=== PATIENT | female | born 1935 | race Caucasian/White ===

== ENCOUNTER 2022-06-28 16:27 | Emergency (ER) | payer MEDICARE, MEDICAID ==
[~2022-06-28] VITALS: Ht 149.9 cm; Wt 68.0 kg
--- NOTE | 2022-06-28 16:39 | NUR ---
[facility] TO ER BED 9
--- NOTE | 2022-06-28 16:50 | NUR ---
FAITH ACEVEDO [phone]
[2022-06-28] MEDS ORDERED: ONDANSETRON 4 MG/2 ML VIAL IVP ONE (17:00)
[2022-06-28] MEDS ORDERED: ONDANSETRON 4 MG/2 ML VIAL ONE (17:01)
--- NOTE | 2022-06-28 17:07 | NUR ---
Patient discharged with v/s stable. Written and verbal after care instructions ABOUT FALL PREVENTION, HEAD IJURY, AND SYNCOPE given and explained. Patient verbalized understanding. [facility]ulance [facility] with to jail. All questions addressed prior to discharge. Advised to follow up with PMD.
[2022-06-28 17:10] VITALS: BP 109/76
--- NOTE | 2022-06-28 17:13 | NUR ---
PATIENT PRESENTS TO ED WITH ABDOMINAL PAIN, NAUSEA/VOMITING, HYPOTENSION . PATIENT HAD 3 EPISODES OF VOMITING IN THE FIELD; SKIN IS PINK/WARM/DRY; AAOX4 WITH UNSTEADY GAIT; LUNGS CLEAR BL; HR EVEN AND REGULAR; PT DENIES ANY FEVER, CP, SOB, OR COUGH AT THIS TIME; PATIENT STATES PAIN OF 10/10 AT THIS TIME; VSS; PATIENT POSITIONED FOR COMFORT; HOB ELEVATED; BEDRAILS UP X2; BED DOWN. ER MD MADE AWARE OF PT STATUS.
[2022-06-28 17:18] LABS: BASOPHILS % (AUTO) 0.4 % (0.0-2.0); EOSINOPHILS # (AUTO) 0.2 K/uL (0-0.4); EOSINOPHILS % (AUTO) 2.3 % (0.0-4.0); HEMATOCRIT 43.7 % (36-48); HEMOGLOBIN 14.5 g/dL (12.0-16.0); LYMPHOCYTES # (AUTO) 3.6 K/uL (2.5-16.5); LYMPHOCYTES % (AUTO) 53.4 % (20.5-51.1); MEAN CORPUSCULAR HEMOGLOBIN 29 pg (27-31); MEAN CORPUSCULAR HGB CONC 33 g/dL (33-37); MONOCYTES # (AUTO) 0.2 K/uL (0.8-1.0); MONOCYTES % (AUTO) 3.7 % (1.7-9.3); NEUTROPHILS # (AUTO) 2.7 K/uL (1.8-7.7); NEUTROPHILS % (AUTO) 40.2 % (42.2-75.2); PLATELET COUNT (AUTO) 261 K/uL (140-450); RED BLOOD CELL COUNT(AUTO) 4.97 MIL/uL (4.20-5.40); RED CELL DISTRIBUTION WIDTH 14.3 % (11.6-13.7); WHITE BLOOD COUNT (AUTO) 6.7 K/uL (4.8-10.8)
[2022-06-28 17:43] LABS: ANION GAP 16.3 (8-16); CHLORIDE 106 mmol/L (98-107); CREATININE 0.9 mg/dL (0.6-1.3); GLUCOSE 113 mg/dL (74-106); POTASSIUM 3.3 mmol/L (3.5-5.1); SODIUM SERUM 139 mmol/L (136-145); UREA NITROGEN, BLOOD 15 mg/dL (7-18)
[2022-06-28 17:50] LABS: ALBUMIN 3.1 g/dL (3.4-5.0); ASPARTATE AMINOTRANSFERASE 39 U/L (15-37); LIPASE 212 U/L (73-393); TOTAL BILIRUBIN 0.6 mg/dL (0.0-1.0)
--- NOTE | 2022-06-28 18:00 | NUR ---
PATIENT WITH CONTINUOUS LARGE AMOUNT OF LOOSE STOOLS, DR. HURTADO MADE AWARE. GIVEN VERBAL ORDER FOR RECTAL TUBE INSERTION
--- NOTE | 2022-06-28 18:15 | NUR ---
WITH THE ASSISTANCE OF SWEETIE POOL, PATIENT CLEANED, PLACED IN CLEAN DIAPER, GOWN AND NEW SHEETS AND BLANKETS PROVIDED. PATIENT REMAINING ON BEDSIDE CADIAC MONITOR, ALL NEEDS MET AT THIS TIME.
[2022-06-28] MEDS ORDERED: ASPI-1822 PO (19:10)
[2022-06-28] MEDS ORDERED: LEVO13CA2 PO (19:10)
--- NOTE | 2022-06-28 19:11 | NUR ---
UPDATED MED REC AVAILABLE, FAMILY AND PATIENT CANNOT RECALL ALL MEDICATIONS.
--- NOTE | 2022-06-28 19:28 | NUR ---
Pt report given to CORINE MOSQUEDA. Transfer of care at this time.
[2022-06-28] MEDS ORDERED: SODIUM PHOS / POTASSIUM PHOS 1 PKT PDR PO SCH (19:45)
[2022-06-28] MEDS ORDERED: CIPR500T4 PO (21:07)
[2022-06-28] MEDS ORDERED: METR-520 PO (21:07)
--- NOTE | 2022-06-28 22:15 | NUR ---
SPOKE WITH MICK AND SHE WILL COME AND GET PT.
--- NOTE | 2022-06-28 23:30 | NUR ---
Patient discharged with v/s stable. Written and verbal after care instructions given and explained. Patient alert, oriented and verbalized understanding of instructions. Ambulatory with to car. All questions addressed prior to discharge. ID band removed. Patient advised to follow up with PMD. Rx of CIPRO, FLAGYL given. Patient educated on indication of medication including possible reaction and side effects. Opportunity to ask questions provided and answered.
[2022-06-29 00:08] VITALS: BP 131/72
== END 2022-06-29 00:08 | disposition home or self-care (01) ==
LOC: MED 16:27
DX: K52.9 Noninfective gastroenteritis and colitis, unspecified (principal); Z20.822 Contact with and (suspected) exposure to COVID-19
CPT/HCPCS: 36415; 71045; 74177; 80053; 83605; 83690; 84484; 85025; 87426; 93005; 96374; 99285; J2405; Q0092; Q9967